=== PATIENT | female | born 1950 | race Caucasian/White ===

== ENCOUNTER 2020-05-04 11:46 | Inpatient (IN) | payer MEDICARE ==
[~2020-05-04] VITALS: Ht 162.6 cm; Wt 59.1 kg
[2020-05-04 12:37] LABS: BASOPHILS # (AUTO) 0.1 X10'3 (0-0.2); BASOPHILS % (AUTO) 0.8 % (0-1); EOSINOPHILS % (AUTO) 0.3 % (0-6); HEMATOCRIT 46.9 % (35.0-45.0); HEMOGLOBIN 15.9 g/dl (12.0-16.0); LYMPHOCYTES % (AUTO) 12.4 % (21-51); MEAN CORPUSCULAR HEMOGLOBIN 34.5 PG (27.0-31.0); MEAN CORPUSCULAR VOLUME 101.5 FL (78-98); MEAN PLATELET VOLUME 9.8 FL (7.4-10.4); MONOCYTES # (AUTO) 0.6 X10'3 (0-0.9); MONOCYTES % (AUTO) 7.8 % (2-12); NEUTROPHILS # (AUTO) 6.1 X10'3 (1.8-7.7); NEUTROPHILS % (AUTO) 78.7 % (42-75); PLATELET COUNT 203 X10'3 (140-440); RED BLOOD COUNT 4.62 X10'6 (4.20-5.60); RED CELL DISTRIBUTION WIDTH 12.1 % (11.5-14.5); WHITE BLOOD COUNT 7.7 X10'3 (4.5-11.0)
[2020-05-04 12:50] LABS: ALANINE AMINOTRANSFERASE 155 U/L (12-78); ALBUMIN 4.2 G/DL (3.4-5.0); ALKALINE PHOSPHATASE 144 IU/L (46-116); ANION GAP 21 (8-16); ASPARTATE AMINO TRANSFERASE 63 U/L (10-37); BILIRUBIN,TOTAL 0.9 MG/DL (0.1-1.0); BLOOD UREA NITROGEN 16 MG/DL (7-18); BUN/CREATININE RATIO 21.9 (6.6-38.0); C-REACTIVE PROTEIN 0.36 MG/DL (0.0-0.5); CALCIUM 9.8 MG/DL (8.5-10.1); CHLORIDE 92 MMOL/L (99-107); CREATININE 0.73 MG/DL (0.40-0.90); GLUCOSE 406 MG/DL (70-104); MAGNESIUM 2.5 MG/DL (1.5-2.4); POTASSIUM 4.2 MMOL/L (3.5-5.1); SODIUM 133 MMOL/L (135-145); TOTAL CARBON DIOXIDE 19.9 MMOL/L (24-32); TOTAL PROTEIN 8.5 G/DL (6.4-8.2); eGFR 78 ML/MIN
[2020-05-04 12:53] LABS: PARTIAL THROMBOPLASTIN TIME 26 SECONDS (22-32)
[2020-05-04] MEDS ORDERED: normal saline 1000ML IV soln IVB ONE (14:00)
[2020-05-04] MEDS ORDERED: niCARdipine I.V. 50 MG in normal saline 250ml IV soln 230 ML IV SCH (15:15)
[2020-05-04] MEDS ORDERED: NO HOME MEDS (15:18)
--- NOTE | 2020-05-04 15:19 | NUR ---
ATTEMPTED IV X 3, TIMO INFANTE AWARE. PATIENT REFUSED ANOTHER IV ATTEMPT BY ANOTHER RN
--- NOTE | 2020-05-04 16:11 | NUR ---
PT WITH REDNESS, SMALL RED BUMPS TO L ARM, SHE STATES 'FROM WHERE BP CUFF WAS' PA GOOD IN TO LOOK AT IT, NO NEW ORDERS. PA GOOD AWARE OF TROP.
[2020-05-04] MEDS: niCARDipine-NS 40mg/200ml IVPB 200 ML IV SCH ×2 (16:23→17:30)
[2020-05-04] MEDS ORDERED: aspirin 81mg tab.chew PO ONE (16:35)
[2020-05-04] MEDS ORDERED: glucagon, human recombinant 1mg kit SUBCUT PRN (17:40)
[2020-05-04] MEDS ORDERED: heparin 10,000 units/1 ML INJ IV ONE (17:40)
[2020-05-04] MEDS ORDERED: bisacodyl 10mg suppository rectal RC PRN (17:40)
[2020-05-04] MEDS ORDERED: HYDROcodone/acetaminophen 5mg/325mg tablet PO PRN (17:40)
[2020-05-04] MEDS ORDERED: magnesium 4gm in 100ml NS 100 ML IV PRN (17:40)
[2020-05-04] MEDS ORDERED: potassium Cl 20 mEq SR tablet PO PRN (17:40)
[2020-05-04] MEDS ORDERED: magnesium hydroxide 30ml (MOM) UD suspension PO PRN (17:40)
[2020-05-04] MEDS ORDERED: MESSAGE TO PHARMACY PO ONE (17:40)
[2020-05-04] MEDS ORDERED: dextrose ORAL solution 15 GM/59 ML bottle PO PRN ×2 (17:40)
[2020-05-04] MEDS ORDERED: acetaminophen 650mg rectal suppository RC PRN (17:40)
[2020-05-04] MEDS ORDERED: dextrose 50%-water 50ml dispensing syringe IV PRN ×2 (17:40)
[2020-05-04] MEDS ORDERED: potassium Cl 40MEQ/1/2NS 520ml 520 ML IV PRN ×2 (17:40)
[2020-05-04] MEDS ORDERED: magnesium Cl slow-release 64mg tablet PO PRN (17:40)
[2020-05-04] MEDS ORDERED: HYDROcodone/acetaminophen 10/325mg tab PO PRN (17:40)
[2020-05-04] MEDS ORDERED: magnesium 2GM in 50ml NS 50 ML IV PRN (17:40)
[2020-05-04] MEDS ORDERED: ondansetron/PF 4mg/2ml inj IV PRN (17:40)
[2020-05-04] MEDS ORDERED: acetaminophen 325mg tablet PO PRN ×2 (17:40)
[2020-05-04] MEDS ORDERED: nitroGLYCERIN-Tridil 50MG/D5W 250 ML IV SCH ×2 (17:40→18:10)
[2020-05-04] MEDS ORDERED: mag hydrox/Alum hydrox/simeth 30ml oral suspension PO PRN (17:40)
[2020-05-04] MEDS ORDERED: morphine 2 MG/ML inj. syringe IV PRN ×2 (17:40)
[2020-05-04] MEDS ORDERED: diphenhydrAMINE 25mg capsule PO PRN (17:40)
[2020-05-04] MEDS: heparin 25,000 UNIT/250ml bag 250 ML IV SCH (18:25)
--- NOTE | 2020-05-04 18:42 | NUR ---
SPOKE WITH DR SKY, CLARIFIED ORDERES FOR MULTIPLE ORAL BLOOD PRESSURE MEDICATIONS IN ADDITION TO NITROGLYCERIN GTT. DR SKY AFFIRMED THAT PATIENT NEEDS TO RECEIVE ALL MEDICATIONS AT THIS TIME. BP CURRENTLY 172/87
[2020-05-04 18:47] LABS: BASOPHILS # (AUTO) 0.1 X10'3 (0-0.2); BASOPHILS % (AUTO) 1.2 % (0-1); EOSINOPHILS % (AUTO) 0.4 % (0-6); HEMATOCRIT 45.1 % (35.0-45.0); HEMOGLOBIN 15.3 g/dl (12.0-16.0); LYMPHOCYTES # (AUTO) 1.4 X10'3 (1.1-4.8); MEAN CORPUSCULAR HEMOGLOBIN 34.7 PG (27.0-31.0); MEAN CORPUSCULAR HGB CONC 33.9 g/dL (33.0-36.5); MEAN CORPUSCULAR VOLUME 102.4 FL (78-98); MEAN PLATELET VOLUME 10.1 FL (7.4-10.4); MONOCYTES # (AUTO) 0.7 X10'3 (0-0.9); MONOCYTES % (AUTO) 8.8 % (2-12); NEUTROPHILS # (AUTO) 5.7 X10'3 (1.8-7.7); NEUTROPHILS % (AUTO) 71.6 % (42-75); PLATELET COUNT 187 X10'3 (140-440); RED CELL DISTRIBUTION WIDTH 12.1 % (11.5-14.5)
[2020-05-04 18:59] LABS: PARTIAL THROMBOPLASTIN TIME 26 SECONDS (22-32)
[2020-05-04] MEDS: atorvastatin 20mg tablet PO SCH (19:17)
[2020-05-04 19:18] LABS: ETHANOL < 0.010 GM/DL (0.0-0.010)
[2020-05-04] MEDS: metoprolol succinate 25mg (24-HOUR) SR. Tablet PO SCH (19:18)
[2020-05-04] MEDS: amLODIPine 5mg tablet PO SCH (19:19)
[2020-05-04] MEDS: lisinopril 20mg tablet PO SCH (19:20)
[2020-05-04] MEDS ORDERED: LORazepam 2 mg/ml vial IV PRN (19:30)
[2020-05-04 19:47] LABS: CLARITY,URINE CLEAR (Clear); COLOR,URINE YELLOW (Yellow); GLUCOSE, URINE >=1000 mg/dl (Neg); KETONES,URINE >=80 mg/dl (Neg); LEUKOCYTE ESTERASE ,URINE NEGATIVE (Neg); NITRITES, URINE NEGATIVE (Neg); OCCULT BLOOD,URINE NEGATIVE (Neg); PH,URINE 5.5 (4.8-8.0); PROTEIN,URINE TRACE mg/dl (Neg); UROBILINOGEN,URINE 0.2 E.U/dL (0.2-1.0)
[2020-05-04 19:52] LABS: UA COLLECTION TYPE NON-SPECIFIED
[2020-05-04 19:53] LABS: BACTERIA,URINE NONE SEEN /HPF (Neg); RBC,URINE NONE SEEN /HPF (0-2); SQUAMOUS EPITHELIAL CELL,UR FEW /LPF (FEW); WBC,URINE NONE SEEN /HPF (0-4)
[2020-05-04 19:54] LABS: URINE AMPHETAMINE SCREEN NEGATIVE (Neg); URINE BARBITUATE SCREEN NEGATIVE (Neg); URINE BENZODIAZEPINES SCREEN NEGATIVE (Neg); URINE CANNABINOID SCREEN POSITIVE (Neg); URINE COCAINE SCREEN NEGATIVE (Neg); URINE METHADONE SCREEN NEGATIVE (Neg); URINE OPIATE SCREEN NEGATIVE (Neg); URINE PHENCYCLIDINE SCREEN NEGATIVE (Neg)
--- NOTE | 2020-05-04 19:57 | NUR ---
Pt. reported a rash on distal upper extremities, PRN benedryl given, Hospitalist Dr. Del Rio notified, Dr. Del Rio assessed the rash and agreed with the administration of PRN benedryl, ordered CBC, and continued heparin and nitroglycerin drips
[2020-05-04] MEDS: K and/or MAG REPLACEMENT MC SCH (20:00)
[2020-05-04 20:13] LABS: BASOPHILS # (AUTO) 0.1 X10'3 (0-0.2); EOSINOPHILS # (AUTO) 0.1 X10'3 (0-0.9); EOSINOPHILS % (AUTO) 0.8 % (0-6); HEMATOCRIT 44.6 % (35.0-45.0); LYMPHOCYTES # (AUTO) 1.4 X10'3 (1.1-4.8); LYMPHOCYTES % (AUTO) 19.5 % (21-51); MEAN CORPUSCULAR HEMOGLOBIN 34.6 PG (27.0-31.0); MEAN CORPUSCULAR HGB CONC 33.7 g/dL (33.0-36.5); MEAN CORPUSCULAR VOLUME 102.7 FL (78-98); MEAN PLATELET VOLUME 10.1 FL (7.4-10.4); MONOCYTES # (AUTO) 0.6 X10'3 (0-0.9); MONOCYTES % (AUTO) 8.8 % (2-12); NEUTROPHILS # (AUTO) 5.1 X10'3 (1.8-7.7); NEUTROPHILS % (AUTO) 69.9 % (42-75); PLATELET COUNT 198 X10'3 (140-440); RED BLOOD COUNT 4.35 X10'6 (4.20-5.60); RED CELL DISTRIBUTION WIDTH 12.2 % (11.5-14.5); WHITE BLOOD COUNT 7.3 X10'3 (4.5-11.0)
[2020-05-04] MEDS: normal saline 1000ml 1,000 ML IV SCH (20:39)
--- NOTE | 2020-05-04 20:43 | NUR ---
DR FLEMING PG'ED, NOTIFIED OF BP. I TURNED OFF NITRO GTT AND DR FLEMING FINE WITH THAT. ORDER TO GO AHEAD AND GIVE LASIX.
[2020-05-04] MEDS: furosemide 40mg/4ml inj IV SCH (20:48)
[2020-05-04] MEDS ORDERED: temazepam 15mg capsule PO PRN (21:00)
--- NOTE | 2020-05-04 21:01 | NUR ---
NOTED PTT AT THIS TIME, HEPARIN GTT TURNED OFF, RN FROM [facility] TO CALL MD AND NOTIFY.
--- NOTE | 2020-05-04 21:11 | NUR ---
DR FLEMING HERE IN ER, NOTIFIED OF PTT 83. ORDER TO TURN OFF HEPARIN I ALREADY DID, AND REDRAW A PTT AT 2200. [facility] RN NOTIFIED.
[2020-05-04 21:38] VITALS: BP 181/91
[2020-05-04 22:00] VITALS: BP 155/76
[2020-05-04] MEDS: insulin Lispro (HumaLOG) vial - multi-dose SQ SCH (23:03)
[2020-05-04] MEDS: insulin glargine (Lantus) pen - multi-dose SQ SCH (23:04)
[2020-05-05] VITALS (9 sets, daily range): BP systolic 136–214; BP diastolic 69–121
[2020-05-05 03:19] LABS: ALANINE AMINOTRANSFERASE 116 U/L (12-78); ALBUMIN 3.5 G/DL (3.4-5.0); ALKALINE PHOSPHATASE 103 IU/L (46-116); ANION GAP 12 (8-16); ASPARTATE AMINO TRANSFERASE 48 U/L (10-37); BILIRUBIN,TOTAL 0.7 MG/DL (0.1-1.0); BLOOD UREA NITROGEN 16 MG/DL (7-18); BUN/CREATININE RATIO 22.5 (6.6-38.0); CALCIUM 9.4 MG/DL (8.5-10.1); CHLORIDE 101 MMOL/L (99-107); CREATININE 0.71 MG/DL (0.40-0.90); GLUCOSE 319 MG/DL (70-104); POTASSIUM 3.6 MMOL/L (3.5-5.1); SODIUM 136 MMOL/L (135-145); TOTAL CARBON DIOXIDE 23.5 MMOL/L (24-32); eGFR 81 ML/MIN
[2020-05-05 03:22] LABS: CHOL/HDL RATIO 7.8 (0.00-4.99); CHOLESTEROL 281 MG/DL (0-200); HDL CHOLESTEROL 36 MG/DL (35-60); LDL CHOLESTEROL 203 MG/DL (50-100); MAGNESIUM 2.3 MG/DL (1.5-2.4); PHOSPHORUS 3.5 MG/DL (2.3-4.5); TRIGLYCERIDES 257 MG/DL (20-135)
[2020-05-05 04:35] LABS: EOSINOPHILS # (AUTO) 0.1 X10'3 (0-0.9); LYMPHOCYTES # (AUTO) 1.4 X10'3 (1.1-4.8); MONOCYTES # (AUTO) 0.5 X10'3 (0-0.9); MONOCYTES % (AUTO) 9.5 % (2-12); RED CELL DISTRIBUTION WIDTH 12.2 % (11.5-14.5)
[2020-05-05 04:37] LABS: BASOPHILS # (AUTO) 0.1 X10'3 (0-0.2); BASOPHILS % (AUTO) 1.2 % (0-1); EOSINOPHILS % (AUTO) 1.1 % (0-6); HEMATOCRIT 41.6 % (35.0-45.0); HEMOGLOBIN 14.2 g/dl (12.0-16.0); LYMPHOCYTES % (AUTO) 24.3 % (21-51); MEAN CORPUSCULAR HEMOGLOBIN 34.8 PG (27.0-31.0); MEAN CORPUSCULAR HGB CONC 34.2 g/dL (33.0-36.5); MEAN CORPUSCULAR VOLUME 101.9 FL (78-98); MEAN PLATELET VOLUME 9.9 FL (7.4-10.4); NEUTROPHILS # (AUTO) 3.6 X10'3 (1.8-7.7); NEUTROPHILS % (AUTO) 63.9 % (42-75); PLATELET COUNT 183 X10'3 (140-440); RED BLOOD COUNT 4.08 X10'6 (4.20-5.60); WHITE BLOOD COUNT 5.7 X10'3 (4.5-11.0)
[2020-05-05] MEDS: heparin 10,000 units/1 ML INJ IV PRN ×2 (04:59→11:52)
--- NOTE | 2020-05-05 06:22 | NUR ---
Problems reprioritized. Patient report given, questions answered & plan of care reviewed with Joseluis.
[2020-05-05] MEDS: K and/or MAG REPLACEMENT MC SCH ×2 (06:35→19:47)
[2020-05-05] MEDS: atorvastatin 20mg tablet PO SCH (07:29)
[2020-05-05] MEDS: lisinopril 20mg tablet PO SCH (07:30)
[2020-05-05] MEDS: furosemide 40mg/4ml inj IV SCH ×2 (07:30→19:34)
[2020-05-05] MEDS: amLODIPine 5mg tablet PO SCH (07:30)
[2020-05-05] MEDS: metoprolol succinate 25mg (24-HOUR) SR. Tablet PO SCH (07:31)
[2020-05-05] MEDS: aspirin 81mg tab.chew PO SCH (08:15)
--- NOTE | 2020-05-05 08:42 | NUR ---
PAGER ID: [phone] MESSAGE: RE: room 307 Yissel Menon Pt HTN 210/101 after taking all am HTN meds at 07:30. What would you like to do? Donald INFANTE [phone]
[2020-05-05] MEDS ORDERED: regadenoson 0.4mg/5ml syringe IV PRN (10:20)
[2020-05-05] MEDS ORDERED: metoprolol tartrate 1mg/ml inj IV PRN (10:20)
[2020-05-05] MEDS ORDERED: nitroGLYCERIN 0.4mg SUBLingual tab SL PRN (10:20)
[2020-05-05] MEDS ORDERED: aminophylline 250mg/10ml inj. IV PRN (10:20)
[2020-05-05] MEDS ORDERED: thiamine inj. 100 MG in normal saline 100ml IV soln 100 ML IV ONE (10:30)
[2020-05-05] MEDS ORDERED: LORazepam 2 mg/ml vial IV PRN (10:30)
[2020-05-05] MEDS ORDERED: haloperidol 5mg tablet PO PRN (10:30)
[2020-05-05] MEDS ORDERED: haloperidol lactate 5mg/ml inj IM PRN (10:30)
[2020-05-05] MEDS ORDERED: iohexol 350MG/ML 100ml bottle IV ONE (10:35)
[2020-05-05] MEDS: heparin 25,000 UNIT/250ml bag 250 ML IV SCH (11:54)
[2020-05-05] MEDS: normal saline 1000ml 1,000 ML IV SCH ×2 (13:40→17:28)
[2020-05-05] MEDS: insulin Lispro (HumaLOG) vial - multi-dose SQ SCH ×3 (13:55→21:32)
[2020-05-05] MEDS: LORazepam 1 MG tablet PO PRN (14:11)
[2020-05-05] MEDS: meclizine 12.5mg tablet PO PRN (14:13)
--- NOTE | 2020-05-05 14:22 | NUR ---
Newly Diagnosed DM A1c 10.1%, visited patient at bedside and reports is still light headed and pending a possible MRI, requested that I return tomorrow for the education. Provided patient with written DM education handout to review prior to verbal education. Pt reports she worked for [employer] for 12 years and has background in nutrition. Addendum: 05/05/20 at [address] Amended: Links added.
--- NOTE | 2020-05-05 18:17 | NUR ---
Problems reprioritized. Patient report given, questions answered & plan of care reviewed with Candy INFANTE.
[2020-05-05] MEDS: heparin, porcine 5000 units/ml vial SQ SCH (20:39)
[2020-05-05] MEDS: insulin glargine (Lantus) pen - multi-dose SQ SCH (21:36)
--- NOTE | 2020-05-05 21:45 | NUR ---
Problems reprioritized. Patient report given, questions answered & plan of care reviewed with Shelbi.
--- NOTE | 2020-05-05 22:42 | NUR ---
Patient transferred to PCU. Report given to Shelbi. All questions are answered. Patient alert, oriented x4. Not at any distress.
[2020-05-06] VITALS (14 sets, daily range): BP systolic 110–212; BP diastolic 54–112
--- NOTE | 2020-05-06 06:48 | NUR ---
Patient in room PCU 3014. I have received report from ARELIS Dailey and had the opportunity to ask questions and assume patient care.
[2020-05-06 07:07] LABS: BASOPHILS % (AUTO) 0.9 % (0-1); EOSINOPHILS # (AUTO) 0.1 X10'3 (0-0.9); EOSINOPHILS % (AUTO) 2.2 % (0-6); HEMATOCRIT 45.6 % (35.0-45.0); HEMOGLOBIN 15.6 g/dl (12.0-16.0); LYMPHOCYTES # (AUTO) 1.3 X10'3 (1.1-4.8); LYMPHOCYTES % (AUTO) 27.3 % (21-51); MEAN CORPUSCULAR HEMOGLOBIN 34.9 PG (27.0-31.0); MEAN CORPUSCULAR HGB CONC 34.2 g/dL (33.0-36.5); MEAN CORPUSCULAR VOLUME 102.1 FL (78-98); MEAN PLATELET VOLUME 9.8 FL (7.4-10.4); MONOCYTES # (AUTO) 0.5 X10'3 (0-0.9); MONOCYTES % (AUTO) 10.7 % (2-12); NEUTROPHILS # (AUTO) 2.7 X10'3 (1.8-7.7); NEUTROPHILS % (AUTO) 58.9 % (42-75); PLATELET COUNT 183 X10'3 (140-440); RED BLOOD COUNT 4.47 X10'6 (4.20-5.60); RED CELL DISTRIBUTION WIDTH 12.2 % (11.5-14.5); WHITE BLOOD COUNT 4.6 X10'3 (4.5-11.0)
[2020-05-06 07:27] LABS: ALANINE AMINOTRANSFERASE 169 U/L (12-78); ALBUMIN 3.6 G/DL (3.4-5.0); ALBUMIN/GLOBULIN RATIO 0.9 (1.1-1.5); ALKALINE PHOSPHATASE 106 IU/L (46-116); ANION GAP 11 (8-16); ASPARTATE AMINO TRANSFERASE 146 U/L (10-37); BILIRUBIN,TOTAL 0.7 MG/DL (0.1-1.0); BLOOD UREA NITROGEN 19 MG/DL (7-18); BUN/CREATININE RATIO 27.5 (6.6-38.0); CALCIUM 9.9 MG/DL (8.5-10.1); CHLORIDE 103 MMOL/L (99-107); CREATININE 0.69 MG/DL (0.40-0.90); GLUCOSE 215 MG/DL (70-104); MAGNESIUM 2.3 MG/DL (1.5-2.4); PHOSPHORUS 2.9 MG/DL (2.3-4.5); SODIUM 142 MMOL/L (135-145); TOTAL CARBON DIOXIDE 27.7 MMOL/L (24-32); TOTAL PROTEIN 7.4 G/DL (6.4-8.2); eGFR 84 ML/MIN
[2020-05-06 07:29] LABS: POTASSIUM 2.8 MMOL/L (3.5-5.1)
[2020-05-06] MEDS: amLODIPine 5mg tablet PO SCH ×2 (07:31→08:31)
[2020-05-06] MEDS: multivitamins, therapeutics tablet PO SCH (07:31)
[2020-05-06] MEDS: atorvastatin 20mg tablet PO SCH (07:31)
[2020-05-06] MEDS: thiamine 100mg tablet PO SCH (07:32)
[2020-05-06] MEDS: furosemide 40mg/4ml inj IV SCH ×2 (07:32→19:24)
[2020-05-06] MEDS: folic acid 1mg tablet PO SCH (07:32)
[2020-05-06] MEDS: metoprolol succinate 25mg (24-HOUR) SR. Tablet PO SCH (07:32)
[2020-05-06] MEDS: heparin, porcine 5000 units/ml vial SQ SCH ×2 (07:33→19:24)
[2020-05-06] MEDS: lisinopril 20mg tablet PO SCH (07:33)
[2020-05-06] MEDS: aspirin 81mg tab.chew PO SCH (07:40)
[2020-05-06] MEDS: potassium Cl 20 mEq SR tablet PO PRN ×3 (07:55→19:24)
[2020-05-06] MEDS: K and/or MAG REPLACEMENT MC SCH ×2 (08:00→19:25)
[2020-05-06] MEDS: insulin Lispro (HumaLOG) vial - multi-dose SQ SCH ×4 (08:06→21:03)
--- NOTE | 2020-05-06 08:28 | NUR ---
notified. PAGER ID: [phone] MESSAGE: RE: Yissel Menon. [id number]. Patient was found off of nitro drip this morning, unknown when taken off. Would you like me to continue it? patient going down to [place]. Thanks. Gregoria [id number].
[2020-05-06] MEDS: LORazepam 1 MG tablet PO PRN (15:57)
--- NOTE | 2020-05-06 18:30 | NUR ---
Problems reprioritized. Patient report given, questions answered & plan of care reviewed with ARELIS Schuster.
[2020-05-06] MEDS: clopidogrel 75mg tablet PO SCH (19:14)
[2020-05-06] MEDS: insulin glargine (Lantus) pen - multi-dose SQ SCH (21:05)
--- NOTE | 2020-05-06 23:10 | NUR ---
Paged Dr. Porter. PAGER ID: [phone] MESSAGE: Pt [id number] Yissel Menon 70 F Dx : NSTEMI, HTN Emergency has a high BP = 186/98 82 bpm. Do you have an order to lower her BP? Thanks! ARELIS Schustre PCU x [phone]
[2020-05-06] MEDS ORDERED: hydrALAZINE 20mg/ml inj. IV PRN (23:15)
[2020-05-07 02:00] VITALS: BP 174/86
[2020-05-07] MEDS: normal saline 1000ml 1,000 ML IV SCH (05:35)
[2020-05-07 06:00] VITALS: BP 169/78
--- NOTE | 2020-05-07 06:11 | NUR ---
Problems reprioritized. Patient report given, questions answered & plan of care reviewed with ARELIS Kinney.
--- NOTE | 2020-05-07 06:28 | NUR ---
Patient in room PCU 3014. I have received report from ARELIS Schuster and had the opportunity to ask questions and assume patient care.
[2020-05-07] MEDS: lisinopril 20mg tablet PO SCH (07:24)
[2020-05-07] MEDS: metoprolol succinate 25mg (24-HOUR) SR. Tablet PO SCH (07:24)
[2020-05-07] MEDS: atorvastatin 20mg tablet PO SCH (07:24)
[2020-05-07] MEDS: thiamine 100mg tablet PO SCH (07:24)
[2020-05-07] MEDS: furosemide 40mg/4ml inj IV SCH (07:25)
[2020-05-07] MEDS: multivitamins, therapeutics tablet PO SCH (07:25)
[2020-05-07] MEDS: heparin, porcine 5000 units/ml vial SQ SCH (07:25)
[2020-05-07] MEDS: clopidogrel 75mg tablet PO SCH (07:25)
[2020-05-07] MEDS: folic acid 1mg tablet PO SCH (07:35)
[2020-05-07] MEDS: K and/or MAG REPLACEMENT MC SCH (08:00)
[2020-05-07] MEDS ORDERED: amLODIPine 5mg tablet PO SCH (08:00)
[2020-05-07 08:14] LABS: BASOPHILS # (AUTO) 0.1 X10'3 (0-0.2); BASOPHILS % (AUTO) 1.4 % (0-1); EOSINOPHILS # (AUTO) 0.1 X10'3 (0-0.9); EOSINOPHILS % (AUTO) 1.6 % (0-6); HEMATOCRIT 48.1 % (35.0-45.0); HEMOGLOBIN 16.3 g/dl (12.0-16.0); LYMPHOCYTES # (AUTO) 1.3 X10'3 (1.1-4.8); MEAN CORPUSCULAR HEMOGLOBIN 34.8 PG (27.0-31.0); MEAN CORPUSCULAR HGB CONC 33.8 g/dL (33.0-36.5); MEAN CORPUSCULAR VOLUME 102.8 FL (78-98); MEAN PLATELET VOLUME 10.3 FL (7.4-10.4); MONOCYTES # (AUTO) 0.5 X10'3 (0-0.9); MONOCYTES % (AUTO) 10.3 % (2-12); NEUTROPHILS # (AUTO) 3.2 X10'3 (1.8-7.7); NEUTROPHILS % (AUTO) 61.7 % (42-75); PLATELET COUNT 206 X10'3 (140-440); RED BLOOD COUNT 4.68 X10'6 (4.20-5.60); RED CELL DISTRIBUTION WIDTH 12.4 % (11.5-14.5); WHITE BLOOD COUNT 5.2 X10'3 (4.5-11.0)
[2020-05-07 08:25] LABS: ALANINE AMINOTRANSFERASE 221 U/L (12-78); ALBUMIN 3.7 G/DL (3.4-5.0); ALBUMIN/GLOBULIN RATIO 0.9 (1.1-1.5); ALKALINE PHOSPHATASE 111 IU/L (46-116); ANION GAP 12 (8-16); ASPARTATE AMINO TRANSFERASE 155 U/L (10-37); BILIRUBIN,TOTAL 0.8 MG/DL (0.1-1.0); BLOOD UREA NITROGEN 21 MG/DL (7-18); CALCIUM 9.2 MG/DL (8.5-10.1); CHLORIDE 103 MMOL/L (99-107); GLUCOSE 259 MG/DL (70-104); PHOSPHORUS 3.4 MG/DL (2.3-4.5); POTASSIUM 3.9 MMOL/L (3.5-5.1); SODIUM 141 MMOL/L (135-145); TOTAL CARBON DIOXIDE 25.6 MMOL/L (24-32); eGFR 82 ML/MIN
[2020-05-07] MEDS: aspirin 81mg tab.chew PO SCH (10:13)
[2020-05-07] MEDS: insulin Lispro (HumaLOG) vial - multi-dose SQ SCH ×2 (10:13→13:53)
[2020-05-07] MEDS: meclizine 12.5mg tablet PO PRN ×2 (10:21→17:02)
[2020-05-07 11:00] VITALS: BP 155/75
[2020-05-07] MEDS ORDERED: LORazepam 0.5 MG tablet PO STA (12:46)
[2020-05-07 15:00] VITALS: BP 142/69
--- NOTE | 2020-05-07 15:33 | NUR ---
Newly Diagnosed DM A1c 10.1%, visited patient at bedside for the fourth time and patient declined verbal review of the education. Provided with RD contact information. Addendum: 05/07/20 at [address] Amended: Links added.
--- NOTE | 2020-05-07 16:55 | NUR ---
Patient stable for transfer per md orders. Report given to Jagruti INFANTE, from [facility]. Patient IV taken out per the discretion of RPA nurse. IV taken out with cannula intact. Wrist band cut at time of discharge. [facility] personnel took patient via wheelchair and seen taken off unit. [facility] personnel did not grab transfer packet, RPA notified.
== END 2020-05-07 17:27 | DRG 64 ==
LOC: ER 11:47 → ED HOLD 17:40 → MED 3N 21:30 → PCU 3S 05-05 22:20
PROVIDERS: ADMIT Family Medicine; ATTEND Family Medicine
PROC: B3251ZZ Computerized Tomography (CT Scan) of Bilateral Common Carotid Arteries using Low Osmolar Contrast (ICD-10-PCS; 2020-05-05)
PROC: B32G1ZZ Computerized Tomography (CT Scan) of Bilateral Vertebral Arteries using Low Osmolar Contrast (ICD-10-PCS; 2020-05-05)
PROC: B3281ZZ Computerized Tomography (CT Scan) of Bilateral Internal Carotid Arteries using Low Osmolar Contrast (ICD-10-PCS; 2020-05-05)
PROC: 4A02XM4 Measurement of Cardiac Total Activity, External Approach (ICD-10-PCS; principal; 2020-05-06)
PROC: 3E073KZ Introduction of Other Diagnostic Substance into Coronary Artery, Percutaneous Approach (ICD-10-PCS; 2020-05-06)
DX: I63.9 Cerebral infarction, unspecified (principal); I21.A1 Myocardial infarction type 2; I16.1 Hypertensive emergency; I67.4 Hypertensive encephalopathy; R47.01 Aphasia; I10 Essential (primary) hypertension; I65.03 Occlusion and stenosis of bilateral vertebral arteries; E11.65 Type 2 diabetes mellitus with hyperglycemia; I65.22 Occlusion and stenosis of left carotid artery; I67.2 Cerebral atherosclerosis; F10.10 Alcohol abuse, uncomplicated; Z60.2 Problems related to living alone; F32.9 Major depressive disorder, single episode, unspecified; Z79.84 Long term (current) use of oral hypoglycemic drugs; Z82.3 Family history of stroke; Z82.49 Family history of ischemic heart disease and other diseases of the circulatory system; Z83.3 Family history of diabetes mellitus; Z79.899 Other long term (current) drug therapy; Z86.73 Personal history of transient ischemic attack (TIA), and cerebral infarction without residual deficits; Z91.19 Patient's noncompliance with other medical treatment and regimen; Z91.81 History of falling; Z71.41 Alcohol abuse counseling and surveillance of alcoholic
CPT/HCPCS: 36415; 70450; 70496; 70498; 70551; 71045; 78452; 80053; 80061; 80305; 80320; 81001; 82948; 83036; 83735; 83880; 84100; 84145; 84443; 84484; 85025; 85610; 85730; 86140; 87081; 92508; 92616; 93005; 93017; 93306; 93308; 93880; 96365; 97110; 97162; 97530; 99285; A9500; G0378; J0360; J1644; J1815; J1940; J2060; J2785; J3411; J3490; J7030; J8597; Q0163; Q9967

== ENCOUNTER 2022-10-12 07:52 | Emergency (ER) | payer MEDICARE ==
[~2022-10-12] VITALS: Ht 162.6 cm; Wt 54.5 kg
[~2022-10-12 07:52] MED LIST: NO HOME MEDS
[2022-10-12 07:59] VITALS: BP 155/77
[2022-10-12] MEDS ORDERED: PERM60CR19 TOP (08:51)
== END 2022-10-12 09:12 | disposition home or self-care (01) ==
LOC: ER 07:52
DX: R21 Rash and other nonspecific skin eruption (principal); L98.8 Other specified disorders of the skin and subcutaneous tissue
CPT/HCPCS: 99282